=== PATIENT | female | born 1995 | race Caucasian/White ===

== ENCOUNTER 2019-03-23 17:02 | Emergency (ER) | payer BC, OTHER ==
--- NOTE | 2019-03-23 18:38 | XRAY Report ---
Reason: rolled ankle Procedure Date: 03/23/2019 Accession Number: [id number] / [id number] Procedure: XR - Ankle 3 View LT CPT Code: FULL RESULT: EXAM: LEFT ANKLE RADIOGRAPHY EXAM DATE: 03/23/2019 06:03 PM. CLINICAL HISTORY: Rolled ankle. COMPARISON: None. TECHNIQUE: 3 views. FINDINGS: Bones: There is suggestion of some flattening of the talar dome; this could be artifact secondary to projection on lateral view. There is no evidence of acute fracture or focal bony lesion. Joints: No evidence of dislocation. Soft Tissues: No unexpected soft tissue findings. IMPRESSION: No evidence of acute fracture or dislocation. RADIA
--- NOTE | 2019-03-23 18:46 | ED Physician Documentation ---
PD HPI LOWER EXT INJURY - Stated complaint Stated Complaint: L ANKLE INJ - Chief complaint Chief Complaint: Ext Problem - History obtained from History obtained from: Patient - History of Present Illness PD HPI LOW EXT INJURY LOCATION: Left, Ankle Type of injury: Fall, Twist (pt fell off a horse she was riding and landed on the L ankle twisting it. Denies other injuries. Did not hit her head, abdomen, back or other extremity.) Where injury occurred: [place] Tim[place] - onset: Yesterday Timing - duration: Days Timing - details: Abrupt onset Improved by: Rest, Ice, Immobilization Worsened by: Moving, Palpating, Other (weight bearing) Associated symptoms: Swelling, Other (ecchymosis on outside of L ankle). No: Weakness, Numbness, Tingling Contributing factors: No: Anticoagulated, Prior ortho surgery, Prosthetic joint, Work related Similar symptoms before: Has not had sx before Recently seen: Not recently seen - Treatment prior to arrival Treatment prior to arrival: an ankle brace and ibuprofen Review of Systems Ten Systems: 10 systems reviewed and negative Constitutional: denies: Fever Cardiac: reports: Reviewed and negative Respiratory: reports: Reviewed and negative GI: reports: Reviewed and negative Skin: reports: Other (bruise on L ankle) Musculoskeletal: reports: Joint pain, Joint swelling, Pain with weight bearing Neurologic: reports: Reviewed and negative. denies: Headache, Head injury, LOC PD PAST MEDICAL HISTORY - Past Medical History Past Medical History: Yes Endocrine/Autoimmune: Type 1 diabetes - Past Surgical History Past Surgical History: Yes HEENT: Myringotomy (tubes) - Present Medications Home Medications: Ambulatory Orders Medication Instructions Recorded Confirmed Insulin Aspart (Vial) [NovoLOG] 10 unit SUBQ ONCE 12/05/13 12/05/13 Insulin Glargine,Hum.rec.anlog 35 unit SQ DAILY 12/05/13 12/05/13 [Lantus] - Allergies Allergies/Adverse Reactions: Allergies Allergy/AdvReac Type Severity Reaction Status Date / Time No Known Drug Allergies Allergy Verified 03/23/19 17:42 - Social History Does the pt smoke?: No Smoking Status: Never smoker Does the pt drink ETOH?: No Does the pt have substance abuse?: No - Immunizations Immunizations are current?: Yes - POLST Patient has POLST: No PD ED PE NORMAL - Vitals Vital signs reviewed: Yes - General General: Alert and oriented X 3 - HEENT HEENT: Atraumatic - Neck Neck: Supple, no meningeal sign - Cardiac Cardiac: RRR - Respiratory Respiratory: No respiratory distress - Abdomen Abdomen: Non distended - Female Female : Deferred - Rectal Rectal: Deferred - Derm Derm: Warm and dry - Neuro Neuro: Alert and oriented X 3 Eye Opening: Spontaneous Motor: Obeys Commands Verbal: Oriented GCS Score: 15 - Psych Psych: Normal mood, Normal affect PD ED PE EXPANDED - Extremities Extremities: Swelling (mild anterolateral swelling ), Bruising (of left ankle, laterally and inferiorly ), Left ankle (no tenderness to palpation over the posterior medial or lateral malleoli), Motor intact, Sensory intact, Vascular intact, Tendon intact, Other Results - Vitals Vitals: Vital Signs - 24 hr 03/23/19 03/23/19 17:40 18:53 Temperature 37 C 37.0 C Heart Rate 105 H 91 Respiratory 20 16 Rate Blood Pressure 156/101 H 134/88 H O2 Saturation 97 98 Oxygen O2 Source Room air - Rads (name of study) L ankle xray Radiology: Final report received (negative for acute fx or dislocation) PD MEDICAL DECISION MAKING - ED course Complexity details: reviewed results, re-evaluated patient, considered differential, d/w patient ED course: ddx- fracture,dislocation, sprain, contusion of ankle 23 y/o F had a minor fall from her horse onto her L ankle yesterday and twisted it while falling. No other injuries reported from pt exam normal except L ankle bruising on lateral aspect with some mild swelling, tenderness anteriorly but no posterior malleoli tenderness. Xrays neg for fx Pt is able to bear weight but is currently using crutches. Advised RICE, NSAIDs and weight bearing as tolerated. Pt already has an ankle brace in place which she can continue using. Departure - Departure Disposition: 01 Home, Self Care Clinical Impression: Left ankle sprain Qualifiers: Encounter type: initial encounter Involved ligament of ankle: anterior talofibular ligament Qualified Code(s): S93.492A - Sprain of other ligament of left ankle, initial encounter Condition: Stable Record reviewed to determine appropriate education?: Yes Instructions: ED Sprain Ankle Follow-Up: RICARDO RENEE [Primary Care Provider] - Within 1 week Comments: Your xray was negative for fracture or dislocation. This appears to be a left ankle sprain. It should improve with rest, elevation and anti-inflammatory medications. You can use an bobby wrap and crutches as needed. You can bear weight as tolerated. Follow up with your doctor if your symptoms persist. Return to the ED if worsening symptoms. Discharge Date/Time: 03/23/19 18:57
[2019-03-23 18:54] VITALS: BP 134/88
== END 2019-03-23 18:57 | disposition home or self-care (01) ==
LOC: ED 17:02
DX: S93.492A Sprain of other ligament of left ankle, initial encounter (principal); V80.010A Animal-rider injured by fall from or being thrown from horse in noncollision accident, initial encounter; Y93.52 Activity, horseback riding; Y92.830 Public park as the place of occurrence of the external cause; E10.9 Type 1 diabetes mellitus without complications; Z79.4 Long term (current) use of insulin
CPT/HCPCS: 99282; 99283

== ENCOUNTER 2021-09-29 21:34 | Outpatient (CLI) | payer BC ==
[2021-09-29 21:53] LABS: BASOPHILS % (AUTO) 0.5 %; HCT - HEMATOCRIT 33.6 % (37.0-47.0); HGB - HEMOGLOBIN 11.3 g/dL (12.0-16.0); LYMPHOCYTES # (AUTO) 2.9 10^3/uL (1.5-3.5); MEAN CORPUSCULAR HEMOGLOBIN 30.8 pg (27.0-31.0); MEAN CORPUSCULAR HGB CONC 33.6 g/dL (32.0-36.0); MEAN CORPUSCULAR VOLUME 91.6 fL (81.0-99.0); MEAN PLATELET VOLUME 10.1 fL (7.9-10.8); MONOCYTES # (AUTO) 0.2 10^3/uL (0.0-1.0); MONOCYTES % (AUTO) 2.5 %; NEUTROPHILS % (AUTO) 60.6 %; PLT - PLATELET COUNT 372 10^3/uL (130-450); RED BLOOD COUNT 3.67 10^6/uL (4.20-5.40); RED CELL DISTRIBUTION WIDTH 11.9 % (12.0-15.0); WHITE BLOOD COUNT 8.2 x10^3/uL (4.8-10.8)
[2021-09-29 21:55] LABS: SLIDE REVIEW? Indicated
[2021-09-29 22:03] LABS: INFECTIOUS MONONUCLEOSIS POSITIVE (Negative)
[2021-09-29 22:15] LABS: DIFFERENTIAL COMMENT MANUAL=AUTO DIFF; PLATELET ESTIMATE, MANUAL NORMAL (130-450,000) (NORMAL); PLATELET MORPHOLOGY NORMAL APPEARANCE (NORMAL); RBC MORPHOLOGY (MULTIPLE) NORMAL APPEARANCE (NORMAL); WBC MORPHOLOGY (MULTIPLE) 2+ REACTIVE LYMPHS (NORMAL)
== END 2021-09-29 21:35 | disposition home or self-care (01) ==
LOC: LAB 21:34
PROVIDERS: ATTEND Family Medicine
DX: R59.0 Localized enlarged lymph nodes (principal)
CPT/HCPCS: 36415; 85025; 86308

== ENCOUNTER 2023-07-27 17:15 | Emergency (ER) | payer BC ==
[2023-07-27 17:25] VITALS: BP 128/84; O2SAT 100
--- NOTE | 2023-07-27 17:38 | ED Physician Documentation ---
PD HPI SKIN - Stated complaint Stated Complaint: DOG BITE ON HANDS - Chief complaint Chief Complaint: Laceration - History obtained from History obtained from: Patient - Additional information Additional information: Patient presents for treatment of hand lacerations after dog bite. She was breaking up a dog fight and got bit. It is an animal familiar to the patient and vaccinated for rabies. She is up-to-date on her tetanus shot. She states she is only here today for antibiotic prophylaxis following the bite. Review of Systems Constitutional: denies: Fever, Chills Skin: reports: Laceration (s). denies: Rash, Lesions PD PAST MEDICAL HISTORY - Past Medical History Past Medical History: Yes Endocrine/Autoimmune: Type 1 diabetes - Past Surgical History Past Surgical History: Yes HEENT: Myringotomy (tubes) - Present Medications Home Medications: Ambulatory Orders Medication Instructions Recorded Confirmed Insulin Aspart (Vial) [NovoLOG] 10 unit SUBQ ONCE 12/05/13 07/27/23 Amox/Clav 875/125 [Augmentin] 1 each PO Q12H #20 tablet 07/27/23 - Allergies Allergies/Adverse Reactions: Allergies Allergy/AdvReac Type Severity Reaction Status Date / Time No Known Drug Allergies Allergy Verified 07/27/23 17:24 - Social History Does the pt smoke?: No Smoking Status: Never smoker Does the pt drink ETOH?: No Does the pt have substance abuse?: No - Immunizations Immunizations are current?: Yes - POLST Patient has POLST: No PD ED PE NORMAL - Vitals Vital signs reviewed: Yes - General General: Alert and oriented X 3, No acute distress - Neck Neck: Supple, no meningeal sign - Cardiac Cardiac: RRR - Respiratory Respiratory: No respiratory distress - Derm Derm: Normal color, Warm and dry, Other (small <1cm lacerations on bilateral distal fingertips) - Extremities Extremities: No deformity, Other (full ROM of hands, fingers, wrists) - Neuro Neuro: Alert and oriented X 3, 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 Vascularly and neurologically intact. Up-to-date on tetanus. Patient is only here today for antibiotic prophylaxis. Augmentin sent to pharmacy of choice. Departure - Departure Disposition: 01 Home, Self Care Clinical Impression: Dog bite of hand Qualifiers: Encounter type: initial encounter Laterality: unspecified laterality Qualified Code(s): S61.459A - Open bite of unspecified hand, initial encounter Condition: Stable Instructions: ED Bite Dog Prescriptions: Amox/Clav 875/125 [Augmentin] 1 each PO Q12H #20 tablet Forms: PCP List
== END 2023-07-27 18:21 | disposition home or self-care (01) ==
LOC: ED 17:15
DX: S61.258A Open bite of other finger without damage to nail, initial encounter (principal); W54.0XXA Bitten by dog, initial encounter; Y93.89 Activity, other specified
CPT/HCPCS: 99281; 99283

== ENCOUNTER 2024-04-23 08:00 | Outpatient (CLI) | payer BC | END 2024-04-23 23:59 | disposition home or self-care (01) | LOC: LAB.S 08:00 | PROVIDERS: ATTEND Emergency Medicine | DX: N16 Renal tubulo-interstitial disorders in diseases classified elsewhere (principal) | CPT/HCPCS: 87086; 87181 ==